=== PATIENT | male | born 1965 | race African-American/Black ===

== ENCOUNTER 2022-10-25 12:08 | Emergency (ER) | payer OTHER ==
[2022-10-25 12:15] VITALS: BP 139/58; PULSE 87; RESP 18; TEMP 98.2; BMI 24.0
[2022-10-25] MEDS ORDERED: RABIES IMMUNE GLOBULIN 300 UNITS/1 ML VIAL IM ONE (12:41)
[2022-10-25] MEDS ORDERED: RABIES VACCINE (PCEC)/PF 2.5 UNIT/VIAL IM ONE ×3 (12:41→13:05)
[2022-10-25] MEDS ORDERED: RABIES IMMUNE GLOBULIN 300 UNITS/1 ML VIAL ONE (12:51)
== END 2022-10-25 13:15 | disposition home or self-care (01) ==
LOC: JERFT 12:08
PROC: 3E0234Z Introduction of Serum, Toxoid and Vaccine into Muscle, Percutaneous Approach (ICD-10-PCS; principal; 2022-10-25)
PROC: 3E033GC Introduction of Other Therapeutic Substance into Peripheral Vein, Percutaneous Approach (ICD-10-PCS; 2022-10-25)
DX: Z20.3 Contact with and (suspected) exposure to rabies (principal); Z29.14 Encounter for prophylactic rabies immune globulin
CPT/HCPCS: 90375; 90675; 99284-25

== ENCOUNTER 2022-10-28 17:34 | Emergency (ER) | payer OTHER ==
[2022-10-28 17:40] VITALS: BP 152/79; PULSE 105; RESP 16; TEMP 98; BMI 25.7
[2022-10-28] MEDS ORDERED: RABIES VACCINE (PCEC)/PF 2.5 UNIT/VIAL IM ONE ×2 (18:15→18:49)
== END 2022-10-28 18:55 | disposition home or self-care (01) ==
LOC: JERFT 17:34
PROC: 3E0234Z Introduction of Serum, Toxoid and Vaccine into Muscle, Percutaneous Approach (ICD-10-PCS; principal; 2022-10-28)
DX: Z23 Encounter for immunization (principal)
CPT/HCPCS: 90675; 99281-25

== ENCOUNTER 2022-11-01 16:40 | Emergency (ER) | payer OTHER ==
[2022-11-01 17:06] VITALS: BP 148/90; PULSE 80; RESP 16; TEMP 98; BMI 26.6
[2022-11-01] MEDS ORDERED: RABIES VACCINE (PCEC)/PF 2.5 UNIT/VIAL IM ONE ×2 (17:44→18:27)
== END 2022-11-01 18:55 | disposition home or self-care (01) ==
LOC: JERFT 16:40
PROC: 3E0234Z Introduction of Serum, Toxoid and Vaccine into Muscle, Percutaneous Approach (ICD-10-PCS; principal; 2022-11-01)
DX: Z29.14 Encounter for prophylactic rabies immune globulin (principal)
CPT/HCPCS: 90675; 99281-25

== ENCOUNTER 2022-11-16 15:39 | Emergency (ER) | payer OTHER ==
[2022-11-16 16:37] VITALS: BP 126/85; PULSE 83; RESP 16; TEMP 98.6; BMI 27.4
[2022-11-16] MEDS ORDERED: RABIES VACCINE (PCEC)/PF 2.5 UNIT/VIAL IM ONE ×2 (16:58→17:06)
== END 2022-11-16 17:20 | disposition home or self-care (01) ==
LOC: JERFT 15:39 → JER 15:39 → JERFT 17:20
DX: Z29.14 Encounter for prophylactic rabies immune globulin (principal)
CPT/HCPCS: 90675; 99281-25